=== PATIENT | male | born 1995 | race African-American/Black ===

== ENCOUNTER 2016-05-15 14:10 | Inpatient (IN) | payer MEDICAID ==
[~2016-05-15] VITALS: Ht 170.2 cm; Wt 56.8 kg
[~2016-05-15 14:10] MED LIST: ALBU0.212 IH; BUDE0.252 IH
[2016-05-15 15:31] VITALS: BP 112/62
[2016-05-15] MEDS ORDERED: MAG HYDROX/AL HYDROX/SIMETH ES 30 ML SUSPENSION UDCUP PO PRN (15:45)
[2016-05-15] MEDS ORDERED: HydrOXYzine PAMOATE 50 MG CAPSULE PO PRN (15:45)
[2016-05-15] MEDS ORDERED: ACETAMINOPHEN 325 MG TABLET PO PRN (15:45)
[2016-05-15] MEDS ORDERED: MAGNESIUM HYDROXIDE SUSPENSION 30 ML UDCUP PO PRN (15:45)
[2016-05-15] MEDS ORDERED: TUBERCULIN, PURIFIED PROTEIN DERIVATIVE 5 TU/0.1 ML SYG ID ONE (15:45)
[2016-05-15] MEDS ORDERED: LOPERAMIDE HCL 2 MG CAPSULE PO PRN (15:45)
[2016-05-15] MEDS ORDERED: GuaiFENesin/D-METHORPHAN [SUGAR-FREE] 200-20MG/10 ML SYRUP UDCUP PO PRN (15:45)
[2016-05-15] MEDS ORDERED: PROMETHAZINE HCL 25 MG TABLET PO PRN (15:45)
[2016-05-15] MEDS ORDERED: OLANZapine 5 MG RAPDIS TABLET PO PRN (15:45)
[2016-05-15] MEDS ORDERED: OLAN10TA3 PO (16:00)
[2016-05-15 16:15] VITALS: BP 96/54
[2016-05-15] MEDS ORDERED: PNEUMOCOCCAL VACCINE POLYVALENT 0.5 ML VIAL [PPSV23] IM ONE (16:15)
[2016-05-15] MEDS ORDERED: ALBUTEROL SULFATE HFA 90 MCG/PUFF 8 GM INHALER IH PRN (17:00)
[2016-05-15] MEDS ORDERED: OLANZAPINE PAMOATE 405 MG/2.7 ML VIAL IM ONE (17:15)
[2016-05-15] MEDS: THIAMINE HCL 100 MG TABLET PO SCH (17:16)
[2016-05-15] MEDS ORDERED: OLANZapine 10 MG RAPDIS TABLET PO SCH (21:00)
[2016-05-16 06:58] VITALS: BP 102/60
[2016-05-16 08:57] VITALS: BP 102/61
[2016-05-16] MEDS: THIAMINE HCL 100 MG TABLET PO SCH ×2 (09:03→16:10)
[2016-05-16] MEDS: FOLIC ACID 1 MG TABLET PO SCH (09:03)
[2016-05-16] MEDS: MULTIVITAMINS WITH MINERALS, THERAPEUTIC TABLET PO SCH (09:03)
[2016-05-16] MEDS ORDERED: PALIPERIDONE PALMITATE 234 MG/1.5 ML SYRINGE IM ONE (15:45)
[2016-05-16] MEDS ORDERED: PALIPERIDONE 3 MG ER TABLET PO PRN (15:45)
[2016-05-16 16:00] VITALS: BP 116/69
[2016-05-16] MEDS: PALIPERIDONE 3 MG ER TABLET PO SCH (20:18)
[2016-05-17 08:53] VITALS: BP 113/68
[2016-05-17] MEDS: FOLIC ACID 1 MG TABLET PO SCH (09:13)
[2016-05-17] MEDS: THIAMINE HCL 100 MG TABLET PO SCH ×2 (09:13→16:48)
[2016-05-17] MEDS: NALTREXONE HCL 50 MG TABLET PO SCH (09:13)
[2016-05-17] MEDS: MULTIVITAMINS WITH MINERALS, THERAPEUTIC TABLET PO SCH (09:13)
[2016-05-17 16:00] VITALS: BP 114/62
[2016-05-17] MEDS: LORazepam 2 MG TABLET PO PRN (16:48)
[2016-05-17] MEDS: PALIPERIDONE 3 MG ER TABLET PO SCH (20:44)
[2016-05-18 06:43] VITALS: BP 120/69
[2016-05-18 09:07] VITALS: BP 115/63
[2016-05-18] MEDS: LORazepam 2 MG TABLET PO PRN (09:33)
[2016-05-18] MEDS: FOLIC ACID 1 MG TABLET PO SCH (09:33)
[2016-05-18] MEDS: NALTREXONE HCL 50 MG TABLET PO SCH (09:33)
[2016-05-18] MEDS: MULTIVITAMINS WITH MINERALS, THERAPEUTIC TABLET PO SCH (09:33)
[2016-05-18] MEDS: THIAMINE HCL 100 MG TABLET PO SCH ×2 (09:33→16:49)
[2016-05-18 16:00] VITALS: BP 105/65
[2016-05-18] MEDS: PALIPERIDONE 3 MG ER TABLET PO SCH (20:45)
[2016-05-19 04:10] VITALS: BP 111/68
[2016-05-19 08:00] VITALS: BP 109/72
[2016-05-19] MEDS: MULTIVITAMINS WITH MINERALS, THERAPEUTIC TABLET PO SCH (08:58)
[2016-05-19] MEDS: NALTREXONE HCL 50 MG TABLET PO SCH (08:59)
[2016-05-19] MEDS: FOLIC ACID 1 MG TABLET PO SCH (08:59)
[2016-05-19] MEDS: THIAMINE HCL 100 MG TABLET PO SCH ×2 (08:59→17:03)
[2016-05-19] MEDS: LORazepam 2 MG TABLET PO PRN ×2 (10:28→17:06)
[2016-05-19 16:00] VITALS: BP 116/68
[2016-05-19] MEDS: PALIPERIDONE 3 MG ER TABLET PO SCH (20:14)
[2016-05-19] MEDS: ZOLPIDEM TARTRATE 10 MG TABLET PO PRN (21:25)
[2016-05-20 07:19] VITALS: BP 111/72
[2016-05-20 08:39] VITALS: BP 133/78
[2016-05-20] MEDS ORDERED: PALIPERIDONE PALMITATE 156 MG/ML SYRINGE IM ONE (09:00)
[2016-05-20] MEDS: MULTIVITAMINS WITH MINERALS, THERAPEUTIC TABLET PO SCH (09:12)
[2016-05-20] MEDS: NALTREXONE HCL 50 MG TABLET PO SCH (09:12)
[2016-05-20] MEDS: FOLIC ACID 1 MG TABLET PO SCH (09:12)
[2016-05-20] MEDS: LORazepam 2 MG TABLET PO PRN (09:12)
[2016-05-20] MEDS: THIAMINE HCL 100 MG TABLET PO SCH ×2 (09:12→16:39)
[2016-05-20 16:00] VITALS: BP 108/64
[2016-05-21 06:08] VITALS: BP 115/71
[2016-05-21 08:17] VITALS: BP 110/69
[2016-05-21] MEDS: NALTREXONE HCL 50 MG TABLET PO SCH (09:30)
[2016-05-21] MEDS: TRIHEXYPHENIDYL HCL 2 MG TABLET PO SCH ×2 (09:30→16:17)
[2016-05-21] MEDS: MULTIVITAMINS WITH MINERALS, THERAPEUTIC TABLET PO SCH (09:30)
[2016-05-21] MEDS: THIAMINE HCL 100 MG TABLET PO SCH ×2 (09:30→16:17)
[2016-05-21] MEDS: FOLIC ACID 1 MG TABLET PO SCH (09:30)
[2016-05-21 16:00] VITALS: BP 110/67
[2016-05-21] MEDS: ZOLPIDEM TARTRATE 10 MG TABLET PO PRN (21:54)
[2016-05-22 03:59] VITALS: BP 112/70
[2016-05-22 08:40] VITALS: BP 103/62
[2016-05-22] MEDS: TRIHEXYPHENIDYL HCL 2 MG TABLET PO SCH (09:21)
[2016-05-22] MEDS: THIAMINE HCL 100 MG TABLET PO SCH (09:21)
[2016-05-22] MEDS: FOLIC ACID 1 MG TABLET PO SCH (09:21)
[2016-05-22] MEDS: MULTIVITAMINS WITH MINERALS, THERAPEUTIC TABLET PO SCH (09:21)
[2016-05-22] MEDS: NALTREXONE HCL 50 MG TABLET PO SCH (09:21)
[2016-05-22] MEDS ORDERED: PALI156D IM (12:01)
[2016-05-22] MEDS ORDERED: NALT50 PO ×2 (12:01→14:41)
[2016-05-22] MEDS ORDERED: PALI234D IM (14:39)
[2016-05-22] MEDS ORDERED: TRIH2TAB3 PO (14:41)
[2016-06-12] MEDS ORDERED: OLANZAPINE PAMOATE 405 MG/2.7 ML VIAL IM SCH (09:00)
[2016-06-17] MEDS ORDERED: PALIPERIDONE PALMITATE 156 MG/ML SYRINGE IM SCH (09:00)
== END 2016-05-22 16:40 | disposition home or self-care (01) | DRG 750 ==
LOC: B3A 15:46
PROVIDERS: ADMIT Psychiatry & Neurology Psychiatry; ATTEND Psychiatry & Neurology Psychiatry
DX: F20.0 Paranoid schizophrenia (principal); Z91.14 Patient's other noncompliance with medication regimen; F17.210 Nicotine dependence, cigarettes, uncomplicated; J45.909 Unspecified asthma, uncomplicated; Z28.21 Immunization not carried out because of patient refusal
CPT/HCPCS: 87081

== ENCOUNTER 2024-05-14 18:06 | Emergency (ER) | payer MEDICAID, OTHER ==
[~2024-05-14] VITALS: Ht 170.2 cm; Wt 63.6 kg
[~2024-05-14 18:06] MED LIST changes: -ALBU0.212 IH; -BUDE0.252 IH; +NALT50TA33 PO; +PALI156D IM; +PALI234D IM; +TRIH2TAB3 PO
[2024-05-14 18:07] VITALS: BP 128/88; PULSE 102; RESP 20; TEMP 98.7; O2SAT 99
== END 2024-05-14 19:59 | disposition left against medical advice (07) ==
LOC: EMS 18:06
DX: E86.0 Dehydration (principal); Z53.21 Procedure and treatment not carried out due to patient leaving prior to being seen by health care provider